=== PATIENT | male | born 1965 | race Caucasian/White ===

== ENCOUNTER 2020-03-25 18:34 | Emergency (ER) | payer MEDICAID ==
[~2020-03-25] VITALS: Ht 175.3 cm; Wt 97.5 kg
--- NOTE | 2020-03-25 19:07 | Emergency Room Report ---
History of Present Illness General Chief Complaint: Behavioral Complaint Source: Patient Present Illness HPI Disclaimer: Please note that this report is being documented using DRAGON technology. This can lead to erroneous entry secondary to incorrect interpretation by the dictating instrument. HPI: 54-year-old male with depression, schizophrenia presents for evaluation of suicidal ideations. The patient states he has been feeling increasingly depressed over the past few months after the of his girlfriend the of a family member 1 year ago. Patient states he takes multiple psychiatric medications including lithium, Haldol, BuSpar and ran out of them proxy 1.5 weeks ago. He follows with a Dr. Holly but has not been able to see them since the office has been closed due to COVID-19. He states today he was running to traffic and attempt to kill himself. He wants to get help and has been institutionalized in the past. No other complaints for the patient at this time. Denies visual changes, headache, neck or back pain, nausea, vomiting, diarrhea, chest pain or shortness of breath. PMH: Depression, anxiety, schizophrenia, hypertension, hyperlipidemia PSH: Denies Allergies: Tetracycline, penicillin, Zyprexa Social Hx: Denies drug or alcohol abuse Allergies: Coded Allergies: OLANZAPINE (Verified Allergy, Unknown, 03/25/20) PENICILLINS (Verified Allergy, Unknown, 03/25/20) TETRACYCLINES (Verified Allergy, Unknown, 03/25/20) COVID-19 Screening Contact w/high risk pt: No Recent Travel to affected area: No Experienced COVID-19 symptoms?: No COVID-19 Testing performed [employer]: No Nursing Documentation-PMH Hx Hypertension: Yes History Of Psychiatric Problem: Yes Hx Seizures: Yes Review of Systems All Other Systems: negative except mentioned in HPI Physical Exam Vital Signs Date Time Temp Pulse Resp B/P (MAP) Pulse Ox O2 Delivery O2 Flow Rate FiO2 03/25/20 18:42 97.5 85 20 143/84 (103) 96 Room Air General: Awake and alert, no acute distress HEENT: NC/AT. EOMI. Cardiovascular: RRR. S1 and S2 normal. No murmur appreciated Resp: Normal work of breathing. No cough, wheezing or crackles appreciated Abdomen: Abdomen is soft, nondistended. Nontender Skin: Intact. No abrasions, laceration or rash over the exposed skin MSK: Normal tone and bulk. Moving all extremities. No obvious deformity. Neuro: Awake and alert. Mentating appropriately. Medical Decision Making Diagnostic Impression: Primary Impression: Amphetamine abuse ER Course 54-year-old male history of schizophrenia and depression presents for evaluation of suicidal ideations. He has been without his medications for 1.5 weeks and does not have follow-up with his psychiatrist at this time. Has not attempted to harm himself currently. He is requesting voluntary placement for psychiatric evaluation and treatment. Will obtain psychiatric screening labs anticipation for transfer to psychiatric facility. Patient arrives stable vital signs no acute distress at this time. 2100: Labs have returned within normal limits. The patient was given his home dose of Seroquel. He is medically cleared for voluntary psychiatric evaluation Laboratory Tests Test 03/25/20 15:23 03/25/20 19:23 03/25/20 19:35 Rowley Level Pending White Blood Count 4.0 K/UL (4.8-10.8) L Red Blood Count 4.28 M/UL (4.70-6.10) L Hemoglobin 12.7 G/DL (14.2-18.0) L Hematocrit 36.6 % (42.0-52.0) L Mean Corpuscular Volume 85 FL (80-99) Mean Corpuscular Hemoglobin 29.7 PG (27.0-31.0) Mean Corpuscular Hemoglobin Concent 34.8 G/DL (32.0-36.0) Red Cell Distribution Width 11.7 % (11.6-14.8) Platelet Count 116 K/UL (150-450) L Mean Platelet Volume 10.5 FL (6.5-10.1) H Neutrophils (%) (Auto) 55.1 % (45.0-75.0) Lymphocytes (%) (Auto) 28.3 % (20.0-45.0) Monocytes (%) (Auto) 11.7 % (1.0-10.0) H Eosinophils (%) (Auto) 3.4 % (0.0-3.0) H Basophils (%) (Auto) 1.6 % (0.0-2.0) Sodium Level 142 MMOL/L (136-145) Potassium Level 4.4 MMOL/L (3.5-5.1) Chloride Level 107 MMOL/L (98-107) Carbon Dioxide Level 24 MMOL/L (21-32) Anion Gap 11 mmol/L (5-15) Blood Urea Nitrogen 12 mg/dL (7-18) Creatinine 1.0 MG/DL (0.55-1.30) Estimated Glomerular Filtration Rate > 60 mL/min (>60) Glucose Level 100 MG/DL (74-106) Calcium Level 8.0 MG/DL (8.5-10.1) L Total Bilirubin 0.4 MG/DL (0.2-1.0) Aspartate Amino Transferase (AST) 45 U/L (15-37) H Alanine Aminotransferase (ALT) 47 U/L (12-78) Alkaline Phosphatase 57 U/L (46-116) Total Protein 6.2 G/DL (6.4-8.2) L Albumin 3.4 G/DL (3.4-5.0) Globulin 2.8 g/dL Albumin/Globulin Ratio 1.2 (1.0-2.7) Salicylates Level 1.7 ug/mL (2.8-20) L Acetaminophen Level < 2 MCG/ML (10-30) L Serum Alcohol < 3 mg/dL Urine Color Pale yellow Urine Appearance Clear Urine pH 5 (4.5-8.0) Urine Specific [place] 1.020 (1.005-1.035) Urine Protein Negative (NEGATIVE) Urine Glucose (UA) Negative (NEGATIVE) Urine Ketones Negative (NEGATIVE) Urine Blood Negative (NEGATIVE) Urine Nitrite Negative (NEGATIVE) Urine Bilirubin Negative (NEGATIVE) Urine Urobilinogen Normal MG/DL (0.0-1.0) Urine Leukocyte Esterase 1+ (NEGATIVE) H Urine RBC 0-2 /HPF (0 - 0) H Urine WBC 0-2 /HPF (0 - 0) Urine Squamous Epithelial Cells None /LPF (NONE/OCC) Urine Bacteria None /HPF (NONE) Urine Opiates Screen Negative (NEGATIVE) Urine Barbiturates Screen Negative (NEGATIVE) Phencyclidine (PCP) Screen Negative (NEGATIVE) Urine Amphetamines Screen Positive (NEGATIVE) H Urine Benzodiazepines Screen Negative (NEGATIVE) Urine Cocaine Screen Negative (NEGATIVE) Urine Marijuana (THC) Screen Positive (NEGATIVE) H Last Vital Signs Date Time Temp Pulse Resp B/P (MAP) Pulse Ox O2 Delivery O2 Flow Rate FiO2 03/25/20 18:42 97.5 85 20 143/84 (103) 96 Room Air Disposition: SHORT-TERM HOSP Condition: Stable Quoc Malik MD March 25, 2020 19:06
[2020-03-25] MEDS ORDERED: SEROQUEL300 MG ORAL (19:11)
[2020-03-25] MEDS ORDERED: LATUDA80 MG PO (19:15)
[2020-03-25] MEDS ORDERED: HALOPERIDOL0.5 MG ORAL (19:15)
[2020-03-25] MEDS ORDERED: ATORVASTATIN CA10 MG ORAL (19:15)
[2020-03-25] MEDS ORDERED: METOPROLOL SUCC25 MG ORAL (19:15)
[2020-03-25] MEDS ORDERED: KLONOPIN0.5 MG ORAL (19:15)
[2020-03-25 19:20] VITALS: BP 143/84
[2020-03-25 19:49] LABS: ANION GAP 11 mmol/L (5-15); BLOOD UREA NITROGEN 12 mg/dL (7-18); CARBON DIOXIDE 24 MMOL/L (21-32); CHLORIDE 107 MMOL/L (98-107); POTASSIUM 4.4 MMOL/L (3.5-5.1); SODIUM 142 MMOL/L (136-145)
[2020-03-25 19:54] LABS: ALANINE AMINOTRANSFERASE 47 U/L (12-78); ALBUMIN 3.4 G/DL (3.4-5.0); ALBUMIN/GLOBULIN RATIO 1.2 (1.0-2.7); ALKALINE PHOSPHATASE 57 U/L (46-116); ASPARTATE AMINO TRANSFERASE 45 U/L (15-37); BILIRUBIN,TOTAL 0.4 MG/DL (0.2-1.0)
[2020-03-25 19:57] LABS: BASOPHILS % (AUTO) 1.6 % (0.0-2.0); EOSINOPHILS % (AUTO) 3.4 % (0.0-3.0); HEMATOCRIT 36.6 % (42.0-52.0); HEMOGLOBIN 12.7 G/DL (14.2-18.0); LYMPHOCYTES % (AUTO) 28.3 % (20.0-45.0); MEAN CORPUSCULAR VOLUME 85 FL (80-99); MONOCYTES % (AUTO) 11.7 % (1.0-10.0); NEUTROPHILS % (AUTO) 55.1 % (45.0-75.0); PLATELET COUNT 116 K/UL (150-450); RED BLOOD COUNT 4.28 M/UL (4.70-6.10); RED CELL DISTRIBUTION WIDTH 11.7 % (11.6-14.8)
[2020-03-25 20:27] LABS: APPEARANCE,URINE CLEAR; BILIRUBIN, URINE NEGATIVE (NEGATIVE); COLOR,URINE PALE YELLOW; GLUCOSE, URINE (UA) NEGATIVE (NEGATIVE); KETONES,URINE NEGATIVE (NEGATIVE); LEUKOCYTE ESTERASE ,URINE 1+ (NEGATIVE); NITRITE,URINE NEGATIVE (NEGATIVE); PH,URINE 5 (4.5-8.0); PROTEIN,URINE NEGATIVE (NEGATIVE); UROBILINOGEN,URINE NORMAL MG/DL (0.0-1.0)
[2020-03-25] MEDS ORDERED: QUEtiapine 200mg tab ORAL SCH (21:30)
[2020-03-25 21:54] VITALS: BP 140/83
[2020-03-25 23:30] VITALS: BP 135/80
[2020-03-26 00:35] VITALS: BP 135/80
== END 2020-03-26 00:35 ==
LOC: EMR 19:00
DX: F15.10 Other stimulant abuse, uncomplicated (principal); F32.9 Major depressive disorder, single episode, unspecified; F41.9 Anxiety disorder, unspecified; F20.9 Schizophrenia, unspecified; E78.5 Hyperlipidemia, unspecified; I10 Essential (primary) hypertension; Z88.0 Allergy status to penicillin; Z88.8 Allergy status to other drugs, medicaments and biological substances; G40.909 Epilepsy, unspecified, not intractable, without status epilepticus
CPT/HCPCS: 36415; 80053; 80178; 80307; 81003; 83690; 85025; G0480; G0481; Z7502; 99284